=== PATIENT | male | born 1960 | race Caucasian/White ===

== ENCOUNTER 2022-11-04 22:35 | Emergency (ER) | payer OTHER ==
[2022-11-04 22:43] VITALS: RESP 16; TEMP 97.4; BMI 31.3
[2022-11-04 23:25] LABS: HEMATOCRIT 42.4 % (35.4-49); HEMOGLOBIN 15.5 G/dL (11.7-16.9); MCH 31.1 pg (25.7-33.7); MCHC 36.5 g/dl (32.0-35.9); MEAN CELL VOLUME 85.3 fl (80-96); MEAN PLT VOLUME 7.6 fl (7.5-11.1); PLATELET COUNT 215.9 10^3/uL (134-434); RBC 4.97 10^6/uL (4.00-5.60); RDW 13.1 % (11.9-15.9); WHITE BLOOD COUNT 7.3 10^3/uL (4.0-10.8)
[2022-11-04 23:49] LABS: ALBUMIN 4.3 g/dl (3.4-5.0); BILIRUBIN,TOTAL 0.7 mg/dl (0.2-1); CREATININE 0.7 mg/dl (0.55-1.3); TOT PROT 7.2 g/dl (6.4-8.2)
[2022-11-05 03:41] VITALS: BP 138/101; PULSE 72
== END 2022-11-05 04:00 | disposition home or self-care (01) ==
LOC: FER 22:35
DX: I10 Essential (primary) hypertension (principal)
CPT/HCPCS: 36415; 80053; 82550; 84484; 85027; 93005; 99284-25